=== PATIENT | female | born 1980 | race Caucasian/White ===

== ENCOUNTER 2025-01-23 11:01 | Emergency (ER) | payer OTHER, SELFPAY ==
[2025-01-23 11:08] VITALS: BP 105/72
[2025-01-23] MEDS: DECADRON 10 MG PO (12:22)
[2025-01-23] MEDS: MOTRIN 400 MG PO (12:22)
--- NOTE | 2025-01-23 12:23 | ED.GENMED ---
History of Present Illness
General
Chief Complaint: Musculo-Skeletal Complaint
Source: patient
Exam Limitations: none
Time Seen by Provider: 01/23/25 11:33
Nursing documentation reviewed up to this point in time: agreed with
History of Present Illness
History of Present Illness:
Patient presents to ED secondary to persistent right-sided neck pain over the past 3 days, unrelieved with taking muscle relaxant and Tylenol at home. Patient has had similar right-sided neck pain intermittently over the past couple years. Patient
has been treated symptomatically. Denies receiving any imaging studies in the past. Denies direct trauma. Denies loss of sensation or weakness. Patient does report right-sided neck pain rating down her shoulder and her arm. Patient has no other
complaints. Denies headache or dizziness.
Review of Systems
Review of Systems
Allergies reviewed?: Yes
All Other Systems: ROS reviewed and negative except as documented in HPI and ROS
Constitutional: Reports no symptoms; Denies fever
: Reports no symptoms
Musculoskeletal: Reports neck pain
Skin: Reports no symptoms
Neurological: Reports no symptoms; Denies dizzy, headache or weakness
Phy Exam
Physical Exam
Physical Exam:
Physical Exam
General: mild painful distress, not acutely ill. afebrile
Head: nc/at. eomi
Neck: supple. no midline tenderness. mild right sided neck tenderness to palpation, without spasm/deformity/swelling.
Abdomen: normal bowel sounds. not tender.
Neuro: alert and oriented x 3. no focal neurological deficits
Skin: no rash
Psychiatric: well kept. interactive and cooperative
Extremities: no edema. no calf tenderness.
Course
Orders/Labs/Results
Orders:
Orders
01/23/25 12:11
CR Cervical Spine 4 Or 5 Vw Urgent
Comment:
Reason For Exam: right sided neck pain
01/23/25 12:13
Dexamethasone Pf [Decadron] 10 mg PO NOW STA
Ibuprofen [Motrin] 400 mg PO NOW STA
Vital Signs
Initial and Last Documented VS:
Initial Vital Signs
Temp Pulse Resp BP Pulse Ox
98.3 F 81 16 105/72 98
01/23/25 11:08 01/23/25 11:08 01/23/25 11:08 01/23/25 11:08 01/23/25 11:08
Last Documented Vital Signs
Temp Pulse Resp BP Pulse Ox
98.3 F 67 16 111/74 98
01/23/25 11:08 01/23/25 13:46 01/23/25 13:46 01/23/25 13:46 01/23/25 13:46
MDM/Problems Addressed
MDM/Problems Addressed:
Cervical x-ray report reviewed and discussed with patient. Patient otherwise remains afebrile, hemodynamically stable, and neurologically intact during observation. History and exam consistent with likely cervical radiculopathy. As such, patient
will be treated symptomatically with the prescribed medications, along with warm compress application, as well as outpatient follow-up with her PCP, with consideration for obtaining MRI cervical spine.
*Pulse Oximetry
SaO2: 98
Oxygen Mode of Delivery: Room air
Patient hypoxic: no
*Critical Care Note
Total Time (30-74mins, 75-104mins- exclusive of procedures): Not Applicable
ED Attending Note
-
Portions of this chart may have been created with voice recognition software.� Occasional wrong word or��sound alike� substitutions may have occurred due to the inherent limitations of voice recognition software.
Discharge Plan
Departure
Patient Disposition: Home (Routine Discharge)
Date of Disposition: 01/23/25
Time of Disposition: 13:44
Patient with high blood pressure during this ER visit?: No
Discharge Problem:
Cervical radiculopathy
Instructions: Radiculopathy of the neck and back (including sciatica) - Discharge instruc
Prescriptions:
New
tramadol 50 mg tablet
50 mg PO Q8H PRN (Reason: Pain) Qty: 14 0RF
methylprednisolone [Medrol (David)] 4 mg tablets,dose pack
4 mg PO DAILY Qty: 21 0RF
Rx Instructions:
As directed
Referrals:
Elly Newton, DO [Family Provider, Internal Medicine]
Lakshmi Berry DO [Active, Orthopedics]
Activity Restrictions/Additional Instructions:
As discussed, please follow-up with your primary care physician and or referred orthopedic surgeon for reevaluation, including potential MRI cervical spine as an outpatient. Your prescription has been sent electronically to [facility] pharmacy in
[place].
Interventions
Interventions:
*Risk Screen - Suicide Last Done: 01/23/25 11:11
*General Assessment Last Done: 01/23/25 11:08
*Neglect/Abuse Screening Last Done: 01/23/25 11:11
*ED- Fall Risk Assessment Last Done: 01/23/25 11:27
*ED COVID-19 Vaccine History Last Done: 01/23/25 11:27
*Nursing Disposition Last Done: 01/23/25 13:46
ED-Musculoskeletal Assessment Last Done: 01/23/25 11:27
Discharge Date and Time
Discharge Date/Time: 01/23/25 13:52
Print Language: AZERI
[2025-01-23 13:46] VITALS: BP 111/74
== END 2025-01-23 13:52 | disposition home or self-care (01) ==
LOC: EMR 11:01
PROVIDERS: EMERGENCY PHYSICIAN Emergency Medicine; FAMILY PHYSICIAN Internal Medicine
DX: M54.12 Radiculopathy, cervical region (principal)
CPT/HCPCS: 99283; 72050